=== PATIENT | female | born 1990 | race Caucasian/White ===

== ENCOUNTER 2017-05-13 13:42 | Emergency (ER) | payer OTHER ==
[~2017-05-13] VITALS: Ht 177.8 cm; Wt 104.3 kg
[2017-05-13 13:42] VITALS: BP_SYST 154
[2017-05-13 17:22] VITALS: BP_SYST 148
== END 2017-05-13 17:22 | disposition home or self-care (01) ==
LOC: SED 13:42
DX: G56.02 Carpal tunnel syndrome, left upper limb (principal); J45.909 Unspecified asthma, uncomplicated
CPT/HCPCS: 99284